=== PATIENT | female | born 1995 | race Caucasian/White ===

== ENCOUNTER 2025-01-22 11:36 | Emergency (ER) | payer BC, OTHER ==
[2025-01-22] MEDS ORDERED: Bacitracin 1 PK ONE (11:53)
[2025-01-22] MEDS ORDERED: Amoxicillin/Potassium Clav 875 MG TAB ONE (11:53)
[2025-01-22] MEDS ORDERED: Boostrix 0.5 ML (Tdap) VIAL (>/=7 yrs of age) ONE (11:54)
[2025-01-22 12:29] LABS: #Basophils 0.0 thou/uL (0.0-0.2); #Eosinophils 0.1 thou/uL (0.0-0.7); #Lymphocytes 1.6 thou/uL (1.20-3.40); #Monocytes 0.5 thou/uL (0.11-0.59); #Neutrophils 4.6 thou/uL (1.40-6.50); %Basophils 0.6 % (0.0-1.0); %Eosinophils 1.4 % (0.0-10.0); %Lymphocytes 23.4 % (21.0-51.0); %Monocytes 6.6 % (0.0-10.0); %Neutrophils 67.9 % (42.0-75.0); Hematocrit 38.0 % (36.0-47.0); Hemoglobin 12.8 g/dL (12.0-16.0); Mean Corpuscular Hemoglobin 29.4 pg (27.0-31.0); Mean Corpuscular Volume 87.4 fl (78.0-98.0); Platelet Count 198 10x3/uL (130-400); Red Blood Cell (RBC) Count 4.35 mill/uL (4.20-5.40); White Blood Cell (WBC) Count 6.7 10x3/uL (4.8-10.8)
[2025-01-22 13:06] LABS: ALT (SGPT) 13 U/L (Less than 34); AST (SGOT) 17 U/L (11-34); Albumin 4.1 g/dL (3.1-4.5); Alkaline Phosphatase 65 U/L (40-110); Anion Gap 16 mmol/L (10-20); BUN (Urea Nitrogen) 12 mg/dL (7.0-18.7); Bilirubin, Total 0.5 mg/dL (0.3-1.2); Calc. Creatinine Clearance 0 mL/min (70-130); Calcium 8.7 mg/dL (7.8-10.44); Carbon Dioxide 20 mmol/L (22-29); Chloride 106 mmol/L (98-107); Globulin 2.6 g/dL (2.4-3.5); Glucose 107 mg/dL (70-105); Potassium 3.8 mmol/L (3.5-5.1); Sodium 138 mmol/L (136-145)
[2025-01-22 23:51] LABS: HIV (1/2) Antibody/Antigen NONREACTIVE (NonReactive); HIV 1/2 INDEX 0.07 S/CO (<1.00); Hep A IgM AB NONREACTIVE (NonReactive); Hep A IgM S/CO 0.17 S/CO (0-0.79); Hep B Core IgM Index 0.08 S/CO (0-0.79); Hep B Surf Ag NONREACTIVE S/CO (NonReactive); Hep C IgG Ab NONREACTIVE S/CO (NonReactive); Hep C Index 0.09 S/CO (0-0.79)
== END 2025-01-22 12:30 | disposition home or self-care (01) ==
LOC: NAV ERS 11:36
DX: S51.852A Open bite of left forearm, initial encounter (principal); R03.0 Elevated blood-pressure reading, without diagnosis of hypertension; Z23 Encounter for immunization; Z87.891 Personal history of nicotine dependence; W50.3XXA Accidental bite by another person, initial encounter; Y92.149 Unspecified place in prison as the place of occurrence of the external cause
CPT/HCPCS: 80053; 80074; 85025; 87389; 90471; 90715